=== PATIENT | male | born 1955 | race Hispanic/Latino ===

== ENCOUNTER 2024-03-26 19:35 | Emergency (ER) | payer MEDICARE ==
[~2024-03-26] VITALS: Ht 167.6 cm; Wt 72.6 kg
[2024-03-26 19:48] VITALS: TEMP 98.2
[2024-03-26] MEDS: TETANUS/DIPHTHERIA TOX ADULT 0.5 ML SYR IM ONE (19:59)
[2024-03-26] MEDS: IBUPROFEN 600 MG TAB PO STA (20:06)
[2024-03-26] MEDS ORDERED: CEPHALEXIN500 M1 PO (22:06)
[2024-03-26] MEDS ORDERED: ULTRAM 50MG50 MG PO (22:06)
[2024-03-26 22:12] VITALS: PULSE 62; RESP 18; O2SAT 100
== END 2024-03-26 22:00 | disposition home or self-care (01) ==
LOC: ER 19:40
DX: S61.305A Unspecified open wound of left ring finger with damage to nail, initial encounter (principal); W23.2XXA Caught, crushed, jammed or pinched between a moving and stationary object, initial encounter; Y92.89 Other specified places as the place of occurrence of the external cause; I10 Essential (primary) hypertension; E11.9 Type 2 diabetes mellitus without complications; Z85.53 Personal history of malignant neoplasm of renal pelvis; F17.210 Nicotine dependence, cigarettes, uncomplicated
CPT/HCPCS: 90471; 90714; 99283